=== PATIENT | male | born 1985 | race Caucasian/White ===

== ENCOUNTER 2017-07-27 10:22 | Emergency (ER) | payer OTHER ==
[2017-07-27] MEDS: CEFTRIAXONE 1 GM/50 ML (PMX) 50 ML IVPB (10:53)
[2017-07-27] MEDS: LACTATED RINGER'S 1,000 ML IV (10:53)
[2017-07-27 12:14] LABS: ADD MAN DIFF? NO
[2017-07-27 12:16] LABS: WHITE BLOOD COUNT 19.4 10^3/ul (4.8-10.8)
[2017-07-27 12:16] LABS: ABNORMAL IP MESSAGE 1; BASOPHILS % 0.2 % (0.0-2.0); EOSINOPHILS # 0.1 10^3/ul (0.0-0.5); EOSINOPHILS % 0.6 % (0.0-7.0); HEMATOCRIT 31.6 % (42.0-52.0); LYMPHOCYTES # 0.4 10^3/ul (0.8-2.9); LYMPHOCYTES % 2.1 % (15.0-51.0); MEAN CORPUSCULAR HEMOGLOBIN 28.5 pg (29.0-33.0); MEAN CORPUSCULAR HGB CONC 34.8 g/dl (32.0-37.0); MEAN CORPUSCULAR VOLUME 81.9 fl (82.0-101.0); MEAN PLATELET VOLUME 8.6 fl (7.4-10.4); MONOCYTE # 0.7 10^3/ul (0.3-0.9); MONOCYTES % 3.5 % (0.0-11.0); NEUTROPHILS % 92.9 % (39.0-77.0); PLATELET COUNT 256 10^3/UL (140-415); POSITIVE DIFF @See below; RED BLOOD COUNT 3.86 10^6/ul (4.70-6.10); RED CELL DISTRIBUTION WIDTH 14.2 % (11.5-14.5)
[2017-07-27 12:34] LABS: ALANINE AMINOTRANSFERASE 51 IU/L (13-69); ALBUMIN 3.8 g/dl (3.3-4.9); ALBUMIN/GLOBULIN RATIO 1.11; ALKALINE PHOSPHATASE 109 IU/L (42-121); ANION GAP 14 (8-16); ASPARTATE AMINO TRANSFERASE 55 IU/L (15-46); BILIRUBIN,INDIRECT 1.1 mg/dl (0-1.1); BILIRUBIN,TOTAL 1.4 mg/dl (0.2-1.3); BLOOD UREA NITROGEN 12 mg/dl (7-20); CALCIUM 8.6 mg/dl (8.4-10.2); CARBON DIOXIDE 26 mmol/L (21-31); CHLORIDE 96 mmol/L (97-110); CREATININE 0.77 mg/dl (0.61-1.24); GLUCOSE 136 mg/dl (70-220); POTASSIUM 4.1 mmol/L (3.5-5.1); SODIUM 132 mmol/L (135-144); TOTAL PROTEIN 7.2 g/dl (6.1-8.1)
[2017-07-27] MEDS: CEFTRIAXONE 1 GM INJ IM (12:55)
[2017-07-27] MEDS: LIDOCAINE 1% (MDV) 10 ML INJ INFIL (12:55)
[2017-07-27] MEDS: IBUPROFEN 600 MG TAB PO (12:55)
[2017-07-27] MEDS: TRIMETHOPRIM/SULFAMETHOX (DS) TAB PO (12:55)
== END 2017-07-27 13:30 | disposition home or self-care (01) ==
LOC: FTE 10:22
DX: L01.00 Impetigo, unspecified (principal); R50.9 Fever, unspecified
CPT/HCPCS: 80053; 85025; 96372; 99284-25